=== PATIENT | male | born 1995 | race Caucasian/White ===

== ENCOUNTER 2021-04-07 11:02 | Emergency (ER) | payer OTHER, SELFPAY ==
[2021-04-07 11:04] VITALS: BP 163/70; PULSE 73; RESP 16; TEMP 36.9; O2SAT 99; BMI 34.0
--- NOTE | 2021-04-07 11:20 | ED_ITS ---
HPI - Male Genitourinary General Chief complaint: Urogenital-Male Stated complaint: ?UTI Time Seen by Provider: 04/07/21 11:16 Source: patient and family ( girlfriend at bedside) Mode of arrival: ambulatory Limitations: no limitations History of Present Illness HPI Narrative: 26-year-old male with no significant past medical history presenting to the ED with complaints of 2 days of dysuria with associated urinary retention and purulent penile discharge. His girlfriend is currently and she was recently checked for STDs at 6 weeks and she was negative for all STDs. Patient reports he is not having sexual intercourse with any other females or men other than the woman who is by him that is at his bedside. He denies any thoughts of STDs. He denies any fevers, nausea/vomiting, abdominal pain, back pain, diarrhea, constipation, genital injury, testicular pain or swelling or any other symptoms complaints or concerns at this time. MD Complaint: dysuria Onset (ago): day(s) (Two days) Duration: constant and progressively worsening Location: penis Severity: moderate Quality: burning Relieving factors: none Exacerbating factors: urination Associated symptoms: Reports discharge Related Data Sexually active: Yes Previous Rx's Medication Instructions Recorded doxycycline hyclate 100 mg tablet 100 mg PO BID 10 Days #20 tab 04/07/21 Allergies Allergy/AdvReac Type Severity Reaction Status Date / Time No Known Allergies Allergy Verified 04/07/21 11:09 Review of Systems Review of Systems: Constitutional : No Weight loss, No Fever, No Chills, No Night Sweats, No Fatigue, NoMalaise ENT/Mouth: No ear pain, No sore throat, No Difficulty swallowing Cardiovascular : No Chest Pain, No SOB, No Dyspnea on Exertion, No Orthopnea, NoEdema, No Palpitations Respiratory : No Cough, No Sputum, No Wheezing, No Dyspnea Gastrointestinal : No Nausea, No Vomiting, No Diarrhea, + abdominal Pain, No Hematochezia, No Melena Genitourinary : Positive dysuria with urinary retention and purulent discharge, No testicular pain, No irregular bleeding, No Dysuria, No Urinary Frequency, No Hematuria,No Urinary Incontinence, No Urgency, No Flank Pain, No rashes/ulcers/vesicle/lesions to the penis. Musculoskeletal : No joint pain, No Myalgias, No Joint Swelling Skin : No Skin Lesions, No rash Neuro : No Weakness, No Numbness, No Paresthesias, No Loss of Consciousness, NoDizziness, No Headache Psych : No Social Issues, Heme/Lymph: No Bruising, No Bleeding,No Lymphadenopathy Endocrine : No Polyuria, No Polydipsia, No Temperature Intolerance PATIENT DENIES ANY THOUGHTS OF STDS Yes all other systems are reviewed and are negative [facility] Past Medical History Attestation statement: The following information was validated with the patient. Medical History No known health problems Social History Social History Advance Directives: No Advance Directives Information Provided: Yes Physical Exam Vital Signs: Vital Signs: Last Vital Signs Temp 98.4 F 04/07/21 11:04 Pulse 73 04/07/21 11:04 Resp 16 04/07/21 11:04 BP 163/70 H 04/07/21 11:04 Pulse Ox 99 04/07/21 11:04 Body Mass Index 34.0 vital signs have been reviewed as normal and appeared to be correct. Blood pressure normal. Heart rate normal. Respiration rate normal. Temperature normal. Oxygen saturation normal. Appearance: Alert. Oriented X3. No acute distress. Head: Normal external exam. Normocephalic. Atraumatic. Eyes: PERRLA. EOMI. Conjunctiva and sclera normal. Eyelids normal. ENT: Pharynx normal. Uvula midline. Moist mucous membranes. Neck: Normal inspection. Neck supple. FROM. No adenopathy. No meningeal signs. CVS: Normal heart rate and rhythm. Heart sound normal. No murmurs noted. Pulses normal throughout. Respiratory: No respiratory distress. Painless inspiration. Breath sounds normal. No wheezes/rales/rhonchi noted. Chest nontender. No accessory muscle usage noted or decreased air movement noted. Abdomen: Soft and nontender. Bowel sounds normal in all 4 quadrants. No distention noted. No organomegaly noted. No visible injury noted. Back: No CVA tenderness. Full range of motion noted. Skin: Skin warm and dry. Normal skin color. Normal skin turgor. No rashes/lesions/lacerations noted. Extremities: Extremities exhibit normal range of motion. Extremities nontender. Neuro: Oriented X 3. No motor deficit. No sensory deficit. Reflexes normal. Course Course Course Narrative: 26-year-old male presenting with his girlfriend at bedside with complaints of dysuria with urinary retention with purulent discharge for the past 2 days worse today. Denies any thoughts of STDs. Girlfriend was recently checked when she was 6 weeks for STDs and she was negative for all STDs. He denies any lesions/rashes/ulcers/pustules to the area. He denies any testicular pain or swelling. On exam patient's abdomen is soft and nontender. He does not have any CVA tenderness. Will obtain a UA and a gonorrhea chlamydia urine. UA revealed 76-150 white blood cells and patient is complaining of purulent discharge therefore I believe this could be an STD until he has negative results. Therefore will treat with 7 days of doxycycline b.i.d. and Rocephin IM and instructions return if any new or worsening symptoms to follow up with primary care provider. Patient understands agrees with this plan. [facility] - Male Genitourinary Medical Records Attestation: I reviewed the patient's medical records. Lab Data Attestation: I reviewed the patient's lab results. Labs: Lab Results 04/07/21 Range/Units 11:31 Urine Color YELLOW Urine Appearance HAZY Urine pH 6.0 (5.0-8.0) Ur Specific [place] >= 1.030 H (1.005-1.025) Urine Protein 1+ H (NEG-TRACE) MG/DL Urine Glucose (UA) NEG (NEG) MG/DL Urine Ketones NEG (NEG) MG/DL Urine Blood 2+ H (NEG) Urine Nitrite NEG (NEG) Ur Leukocyte Esterase 1+ H (NEG) Urine RBC 1-4 (0) /HPF Urine WBC 76-150 H (0-4) /HPF Ur Squamous Epith Cells TRACE /LPF Urine Bacteria NONE /LPF Urine Mucus TRACE /LPF Discharge Plan Discharge Clinical Impression: Urinary tract infection, Abnormal penile discharge Patient Disposition: Home, Self-Care Instructions: Urinary Tract Infection in Men (ED) Additional Instructions: You have pending lab results if any are positive you will be contacted. Prescriptions: New doxycycline hyclate 100 mg tablet 100 mg PO BID 10 Days Qty: 20 RF: 0 Referrals: Jennifer Fleming NP [Primary Care Provider] - 2 days Print Language: Vietnamese
[2021-04-07 11:40] LABS: Glucose Urine UA NEG (NEG); Leukocyte Esterase Urine 1+ (NEG); Nitrite Urine NEG (NEG); Specific Gravity - Urine >= 1.030 (1.005-1.025); UACC Culture Trigger YES; Urine Blood 2+ (NEG); Urine Ketones NEG (NEG); Urine Protein 1+ MG/DL (NEG-TRACE)
[2021-04-07 11:41] LABS: Appearance Urine HAZY; Color Urine YELLOW
[2021-04-07 11:56] LABS: Mucus Urine TRACE /LPF; Squamous Epithelial Cell Urine TRACE /LPF
[2021-04-07] MEDS: cefTRIAXone sodium 500 MG, Lidocaine HCl 1 % MPF 1 ML IM (12:18)
[2021-04-07 14:19] LABS: CT PCR DETECTED (Not Detect.); NG PCR DETECTED (Not Detect.)
== END 2021-04-07 12:26 | disposition home or self-care (01) ==
PROVIDERS: Physician Assistant Medical; Emergency Provider Emergency Medicine; PCP Nurse Practitioner Family
DX: N39.0 Urinary tract infection, site not specified (principal); R36.9 Urethral discharge, unspecified; A54.9 Gonococcal infection, unspecified; A56.8 Sexually transmitted chlamydial infection of other sites
CPT/HCPCS: 81001; 87086; 87491; 87591; 96372; 99283; 99284; J0696